=== PATIENT | male | born 1950 | race Caucasian/White ===

== ENCOUNTER 2018-10-04 22:26 | Emergency (ER) | payer MEDICAID, MEDICARE, OTHER ==
[2018-10-04] MEDS ORDERED: methylPREDNISolone Sodium Succinate 125 MG/2 ML SDV IVPUSH ONE (23:14)
[2018-10-04] MEDS ORDERED: Sodium Chloride 0.9% 10 ML Syringe FLUSH PRN (23:14)
[2018-10-04] MEDS ORDERED: Ketorolac 30 MG/ML SDV IVPUSH ONE (23:14)
--- NOTE | 2018-10-04 23:21 | EDM.PDOC ---
ED HPI GENERAL MEDICAL PROBLEM - General Chief Complaint: Bite:Animal, Insect Stated Complaint: BEE STINGS ALL OVER BODY Time Seen by Provider: 10/04/18 23:00 Source of Information: Reports: Patient, Family History Limitations: Reports: No Limitations - History of Present Illness INITIAL COMMENTS - FREE TEXT/NARRATIVE: 68-year-old male who was stung several times by bees in a diffuse pattern on the body, the legs the trunk and behind his right ear. 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 He has no respiratory issues or widespread hives. Onset: Sudden Duration: Hour(s): (4 hours ago) Associated Symptoms: Denies: Confusion, Chest Pain, Cough, Malaise, Nausea/ Vomiting, Shortness of Breath, Weakness Right Thigh Pain Score (Numeric/FACES): 6 - Related Data Allergies Allergy/AdvReac Type Severity Reaction Status Date / Time bee pollen Allergy Swelling Verified 10/04/18 23:00 pollen extracts Allergy Sneezing Verified 10/04/18 23:00 tree and shrub pollen Allergy Sneezing Verified 10/04/18 23:00 Home Meds: Home Meds Insulin Glargine,Hum.Rec.Anlog [Basaglar Kwikpen U-100] 100 unit SQ DAILY [History] Liraglutide [Victoza] 1.8 mg SQ DAILY 10/05/18 [History] Lisinopril 5 mg PO DAILY 10/05/18 [History] Simvastatin 40 mg PO DAILY 10/05/18 [History] metFORMIN [Glucophage] 500 mg PO BIDMEALS 10/05/18 [History] ED ROS GENERAL - Review of Systems Review Of Systems: See Below Constitutional: Denies: Fever, Chills HEENT: Denies: Throat Pain Respiratory: Denies: Shortness of Breath, Cough Cardiovascular: Denies: Chest Pain GI/Abdominal: Reports: No Symptoms Skin: Reports: Other (Several insect stings on the extremities abdomen and back of the neck with surrounding erythema) Neurological: Denies: Headache ED EXAM, ANIMAL BITE - Physical Exam Exam: See Below Exam Limited By: No Limitations General Appearance: Alert, No Apparent Distress, Anxious Eye Exam: Bilateral Eye: Normal Inspection Throat/Mouth: Normal Inspection Head: Other (Only finding is some erythema on the right posterior neck and behind the right ear, no significant swelling) Neck: No: Lymphadenopathy (R), Lymphadenopathy (L) Respiratory/Chest: No Respiratory Distress, Lungs Clear Cardiovascular: Regular Rate, Rhythm Neurological: Alert, Oriented Skin Exam: Other (Scattered patches of erythema and hive-like formation from the insect stings on the extremities and abdomen) Course - Vital Signs Last Recorded V/S: Last Vital Signs Temp 97.4 F 10/04/18 22:58 Pulse 72 10/05/18 00:20 Resp 20 10/04/18 22:58 BP 134/80 10/05/18 00:20 Pulse Ox 94 L 10/04/18 22:58 - Orders/Labs/Meds Orders: Active Orders 24 hr Category Date Time Status Saline Lock Insert [OM.PC] Routine Oth 10/04/18 23:14 Ordered Meds: Medications Discontinued Medications Generic Name Dose Route Start Last Admin Trade Name Freq PRN Reason Stop Dose Admin Ketorolac Tromethamine 30 mg 10/04/18 23:14 10/04/18 23:49 Toradol IVPUSH 10/04/18 23:15 30 mg ONETIME ONE Administration Methylprednisolone Sodium Succinate 125 mg 10/04/18 23:14 10/04/18 23:48 Solu-Medrol IVPUSH 10/04/18 23:15 125 mg ONETIME ONE Administration Sodium Chloride 10 ml 10/04/18 23:14 10/04/18 23:48 Saline Flush FLUSH 10 ml ASDIRECTED PRN Administration Keep Vein Open - Re-Assessments/Exams Free Text/Narrative Re-Assessment/Exam: 10/05/18 00:34 Saline lock was started and the patient was given 30 mg of IV Toradol and 125 mg of IV Solu-Medrol. He has already taken oral Benadryl. Over the course of the next hour and a half he had steady improvement. He'll be discharged on 60 mg of prednisone daily for the next 3-5 days. He can continue with oral Benadryl , and return anytime if worsening despite treatment. Departure - Departure Time of Disposition: 00:44 Disposition: Home, Self-Care 01 Clinical Impression: Bee sting reaction Qualifiers: Encounter type: initial encounter Injury intent: accidental or unintentional Qualified Code(s): T63.441A - Toxic effect of venom of bees, accidental ( unintentional), initial encounter - Discharge Information Instructions: Bee, Wasp, or Hornet Sting, Adult Referrals: PCP,None [Primary Care Provider] - Forms: ED Department Discharge Care Plan Goals: Continue with oral Benadryl as needed, take 6 pills of prednisone each morning with food for the next 2-5 days. Anti-inflammatories such as ibuprofen or naproxen will also be beneficial along with cool compresses. Increase activity as tolerated. Return anytime if worsening despite pretreatment or you develop other concerns. - My Orders Last 24 Hours: My Active Orders 10/04/18 23:14 Saline Lock Insert [OM.PC] Routine - Assessment/Plan Last 24 Hours: My Active Orders 10/04/18 23:14 Saline Lock Insert [OM.PC] Routine
== END 2018-10-05 00:42 | disposition home or self-care (01) ==
LOC: JP.ED 22:26
DX: T63.441A Toxic effect of venom of bees, accidental (unintentional), initial encounter (principal); Z91.030 Bee allergy status; Z91.048 Other nonmedicinal substance allergy status; Z79.899 Other long term (current) drug therapy
CPT/HCPCS: 96374; 96375; 99282; J1885; J2930